=== PATIENT | female | born 1980 | race Caucasian/White ===

== ENCOUNTER 2017-07-09 17:57 | Emergency (ER) | payer OTHER ==
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
[2017-07-09] MEDS ORDERED: DIPH,PERTUSS(ACELL),TET VAC/PF 0.5 ML DISP.SYRIN IM ONE (18:19)
[2017-07-09 19:49] VITALS: BP 165/102
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
== END 2017-07-09 19:30 | disposition home or self-care (01) ==
LOC: ED 17:57
DX: S80.812A Abrasion, left lower leg, initial encounter (principal); S80.811A Abrasion, right lower leg, initial encounter; W45.8XXA Other foreign body or object entering through skin, initial encounter; Y93.9 Activity, unspecified; Y99.9 Unspecified external cause status
CPT/HCPCS: 90471; 90715; 99283

== ENCOUNTER 2018-06-02 15:19 | Emergency (ER) | payer OTHER ==
[2018-06-02] MEDS ORDERED: ASPIRIN 81 MG CHEW TAB PO ONE (15:37)
[2018-06-02 15:42] VITALS: BP 184/111
[2018-06-02] MEDS ORDERED: MORPHINE SULFATE 4 MG/ML PREFILLED SYR IVP ONE (15:44)
[2018-06-02 16:05] LABS: eGFR (Non-African) > 60
--- NOTE | 2018-06-02 16:14 | ED Physician Documentation ---
Sore Throat/Dental Pain - HPI Stated Complaint: CP Chief Complaint: Dental Pain Onset: days ago (2) Context: Fractured Tooth Associated Symptoms: chills, moderate Worsened By: heat, cold - ROS CONST: no problems CVS/RESP: chest pain GI/: nausea MS/SKIN/LYMPH: denies: leg swelling NEURO/PSYCH: headache - PAST HX Past History: gum disease Other History: other (hypertension) Allergies/Adverse Reactions: Allergies Allergy/AdvReac Type Severity Reaction Status Date / Time ropinirole HCl [From Requip] Allergy Verified 06/02/18 15:35 sumatriptan [From Imitrex] Allergy Verified 06/02/18 15:41 Home Medications: Ambulatory Orders Medication Instructions Recorded Clindamycin HCl 300 mg PO Q8 10 Days capsule 06/02/18 HYDROcodone /APAP 5/325 [[place] 1 tab PO PRN PRN 06/02/18 5/325] Levothyroxine Sodium [Synthroid] 1 tab PO DAILY 06/02/18 Methocarbamol 1 tab PO PRN PRN 06/02/18 Pramipexole Di-HCl [Pramipexole 1 tab PO DAILY 06/02/18 Dihydrochloride] Tramadol HCl [Ultram] 50 mg PO BID #20 tablet 06/02/18 - SOCIAL HX Smoking History: non-smoker Alcohol Use: none Drug Use: none - FAMILY HX Family History: No - VITAL SIGNS Vital Signs: Vital Signs Temp Pulse Resp BP Pulse Ox 97.6 F 87 24 184/111 100 06/02/18 15:33 06/02/18 15:37 06/02/18 15:33 06/02/18 15:33 06/02/18 15:37 - REVIEWED ASSESSMENTS Nursing Assessment Reviewed: Yes Vitals Reviewed: Yes Progress - Results/Orders Results/Orders: Troponin <0.03, CBC, CMP within normal limits. PA AND LATERAL CHEST HISTORY: Chest pain COMPARISON: None PA and Lateral Chest dated June 02, 2018 demonstrates a normal cardiomediastinal silhouette. Pulmonary vascularity is normal. Lungs are clear. IMPRESSION: NO ACTIVE DISEASE. Electronically signed on Jun 02, 2018 4:23:46 PM CDT by: Teresa Mccord - Progress Progress: 1700 patient still having pain after given Morphine 4mg IV. Will give [place] 5/325mg PO for longer lasting results. 1740 Blood pressure rising. Give Clonidine x 1. - EKG/XRAY/CT EKG: NSR ED Results Lab/Radiology - Lab Results Lab Results: Lab Results 06/02/18 06/02/18 15:37 15:37 Sodium 135 mmol/L L mmol/L (136-145) Potassium 4.0 mmol/L mmol/L (3.5-5.1) Chloride 106 mmol/L mmol/L (98-107) Carbon Dioxide 29 mmol/L mmol/L (22-30) BUN 11 mg/dL mg/dL (7-17) Creatinine 0.80 mg/dL mg/dL (0.52-1.04) Estimated Creat Clear 350 Est GFR ( Amer) > 60 (60 - ) Est GFR (Non-Af Amer) > 60 (60 - ) Glucose 91 mg/dL mg/dL (74-106) Calcium 8.8 mg/dL mg/dL (8.4-10.2) Total Bilirubin 0.4 mg/dL mg/dL (0.2-1.3) AST 15 U/L U/L (15-46) ALT 22 U/L U/L (13-69) Alkaline Phosphatase 91 U/L U/L (38-126) Creatine Kinase Pending Troponin I < 0.03 ng/mL L ng/mL (0.03-0.06) Total Protein 7.8 g/dL g/dL (6.3-8.2) Albumin 4.0 g/dL g/dL (3.5-5.0) - Orders Orders: ED Orders Category Date Time Status Continuous EKG monitoring Q30M Care 06/02/18 15:37 Active Continuous Pulse Oximetry Q30M Care 06/02/18 15:[address] IV Lock 1T Care 06/02/18 15:37 Active CHEST 2VIEW [RAD] Routine Exams 06/02/18 Ordered CBC REF Routine Lab 06/02/18 Received CMP Routine Lab 06/02/18 15:37 Results CREATINE KINASE Routine Lab 06/02/18 15:37 Results TROPONIN I (cTnI) Stat Lab 06/02/18 15:37 Completed Aspirin Med 06/02/18 15:37 Discontinued 324 mg PO NOW ONE Morphine Sulfate [DepoDUR] Med 06/02/18 15:44 Discontinued 4 mg IVP NOW ONE Oxygen Daily Oxygen 06/02/18 15:45 Ordered EKG WITH COMPARISON Stat Ther 06/02/18 15:37 Ordered Dental Pain Physical Exam - EXAM General Appearance: no acute distress Head/Neck: mandibular swelling (L), pain on palpation (L). No: cervical lymphadenopathy Eyes: PERRL Mouth/Throat: dental tenderness Ear/Nose: nml inspection Respiratory: breath sounds nml CVS: reg. rate & rhythm Abdomen: soft, normal bowel sounds, non-tender, tenderness Extremities: non-tender Skin: warm/dry, normal color Neuro/Psych: none (left lower molar) Discharge Clincal Impression: Infected dental caries, Essential (primary) hypertension Prescriptions: Clindamycin HCl 300 mg PO Q8 10 Days capsule Tramadol HCl [Ultram] 50 mg PO BID #20 tablet Referrals: Uma Perez MD [Primary Care Provider] - 2 Days Additional Instructions: Follow up with PCP and discuss blood pressure. You need to be taking a blood pressure medication. Disposition: 01 HOME, SELF-CARE Decision to Admit: NO Date of Decison to Admit: 06/02/18 Decision Time: 17:44
--- NOTE | 2018-06-02 16:37 | Diagnostic Imaging Report ---
SKINNY JOHNSON [facility] [address] [facility] [address] [place] [address]. [id number] Report Submission Date: Jun 02, 2018 4:23:46 PM CDT Patient Study Name: EDISON QUIÑONES Date: Jun 02, 2018 3:55:03 PM CDT Modality Type: DX Gender: F Description: CHEST : 82 Institution: [facility] Physician: SKINNY JOHNSON PA AND LATERAL CHEST HISTORY: Chest pain COMPARISON: None PA and Lateral Chest dated June 02, 2018 demonstrates a normal cardiomediastinal silhouette. Pulmonary vascularity is normal. Lungs are clear. IMPRESSION: NO ACTIVE DISEASE. Electronically signed on Jun 02, 2018 4:23:46 PM CDT by: Teresa SOMMERS
[2018-06-02] MEDS ORDERED: HYDROcodone /APAP 5/325 1 EACH TABLET PO ONE (16:40)
[2018-06-02] MEDS ORDERED: cefTRIAXone SODIUM 1 GM in 0.9 % SODIUM CHLORIDE 50 ML IV ONE (16:42)
[2018-06-02] MEDS ORDERED: cefTRIAXone SODIUM 1 GM VIAL ONE (16:45)
[2018-06-02] MEDS ORDERED: 0.9 % SODIUM CHLORIDE 100 ML IV ONE (16:46)
[2018-06-02 17:21] LABS: BASO % 0.4 % (0.0-1.5); LYMPH ABS # 1.64 thou/uL (0.60-4.00); MCH. 23.3 pg (28.0-34.0); MCV 73.1 fL (80.0-100.0); MONOCYTE % 6.8 % (0.0-11.0); MONOCYTE ABS # 0.61 thou/uL (0.00-0.90); PLATELET COUNT 270 thou/uL (130-400)
[2018-06-02] MEDS ORDERED: CloNIDine HCL 0.1 MG TABLET PO ONE (17:41)
== END 2018-06-02 18:20 | disposition home or self-care (01) ==
LOC: ED 15:19
DX: K04.7 Periapical abscess without sinus (principal); I10 Essential (primary) hypertension; R07.9 Chest pain, unspecified
CPT/HCPCS: 71046; 80053; 82550; 84484; 85025; A9270; J0696; J2270; 93005; 96365; 96375; 99284; S1016

== ENCOUNTER 2018-12-06 12:57 | Emergency (ER) | payer OTHER ==
--- NOTE | 2018-12-06 12:59 | ED Physician Documentation ---
General Adult - HISTORIAN Historian: patient - HPI Stated Complaint: nasuesa, diarrhea, cough, body aches Chief Complaint: General Adult Onset: days ago (9) Timing: still present Severity: moderate Further Comments: yes (She reports 9 days ago starting with body aches and she felt a temp. She has had nasuea and diarrhea, cough that is productive. She is feeling fatigue and chills. She is taking OTC meds with no relief. She has no sick contacts) - ROS CONST: fever, recent illness EYES/ENT: nasal drainage, nasal congestion CVS/RESP: cough. denies: chest pain, shortness of breath GI/: nausea, diarrhea. denies: problems urinating, vomiting MS/SKIN/LYMPH: denies: rash NEURO/PSYCH: headache - PAST HX Past History: hypertension Allergies/Adverse Reactions: Allergies Allergy/AdvReac Type Severity Reaction Status Date / Time ropinirole HCl [From Requip] Allergy Verified 06/02/18 15:35 sumatriptan [From Imitrex] Allergy Verified 06/02/18 15:41 Home Medications: Ambulatory Orders Medication Instructions Recorded Clindamycin HCl 300 mg PO Q8 10 Days capsule 06/02/18 HYDROcodone /APAP 5/325 [[place] 1 tab PO PRN PRN 06/02/18 5/325] Levothyroxine Sodium [Synthroid] 1 tab PO DAILY 06/02/18 Methocarbamol 1 tab PO PRN PRN 06/02/18 Pramipexole Di-HCl [Pramipexole 1 tab PO DAILY 06/02/18 Dihydrochloride] Tramadol HCl [Ultram] 50 mg PO BID #20 tablet 06/02/18 - SOCIAL HX Smoking History: non-smoker Alcohol Use: none Drug Use: none - FAMILY HX Family History: No - VITAL SIGNS Vital Signs: Vital Signs Temp Pulse Resp BP Pulse Ox 184/111 06/02/18 18:20 - REVIEWED ASSESSMENTS Nursing Assessment Reviewed: Yes Vitals Reviewed: Yes Progress - Progress Progress: 1400: decrease wheezing and improved inspiration post neb - she states this is improved DG General Adult Physical Exam - PHYSICAL EXAM GENERAL APPEARANCE: no distress EENT: eye inspection normal, pharynx normal, no signs of dehydration, SARTHAK. No: pharyngeal erythema NECK: normal inspection RESPIRATORY: no resp distress, chest non-tender, wheezes (exp wheezing on left upper lobe ) CVS: reg rate & rhythm, heart sounds normal ABDOMEN: soft, normal bowel sounds SKIN: warm/dry, normal color EXTREMITIES: non-tender, normal range of motion, no evidence of injury, no edema NEURO: oriented X3 Discharge Clincal Impression: Bronchitis Referrals: Uma Perez MD [Primary Care Provider] - 2 Days Comments: 1. Azithromycin - zpack - take as directed 2. Medrol dose pack - take as directed 3. ProAir 2 puffs by mouth every 4 hours as needed for cough 4. zofran 4 mg take 1 by mouth every 8 hours as needed for nausea 5. Increase fluids 6. See PCP In 2 days if no improvement 7. Return to ER for increasing concerns Condition: Stable Disposition: 01 HOME, SELF-CARE Decision to Admit: NO Date of Decison to Admit: 12/06/18 Decision Time: 14:05
[2018-12-06] MEDS ORDERED: IPRATROPIUM/ALBUTEROL SULFATE 3 ML AMPUL.NEB NEB ONE (13:42)
[2018-12-06] MEDS ORDERED: ONDANSETRON HCL 4 MG TAB.RAPDIS PO ONE (14:02)
[2018-12-06 14:08] VITALS: BP 182/111
--- NOTE | 2018-12-06 15:21 | Diagnostic Imaging Report ---
RICKIE BRIGGS [facility] [address] [facility] [address] [place], [place]. [address] Report Submission Date: Dec 06, 2018 1:50:30 PM CDT Patient Study Name: EDISON RAMIREZ Date: Dec 06, 2018 1:27:24 PM CDT Modality Type: DX Gender: F Description: CHEST 2VIEW : 82 Institution: [facility] Physician: RICKIE BRIGGS Chest PA and lateral views Clinical history: Cough and wheezing. Normal heart shadow and mediastinum. Clear lungs without acute infiltrate or pleural effusion. No pneumothorax. Mild thoracic spine spondylosis. Impression: No active pulmonary pathology Electronically signed on Dec 06, 2018 1:50:30 PM CDT by: Himanshu SOMMERS
== END 2018-12-06 14:59 | disposition home or self-care (01) ==
LOC: ED 12:57
DX: J40 Bronchitis, not specified as acute or chronic (principal)
CPT/HCPCS: 71046; 87400; 94640; 99283; A9270

== ENCOUNTER 2019-08-19 18:37 | Emergency (ER) | payer OTHER ==
--- NOTE | 2019-08-19 19:02 | ED Physician Documentation ---
General Adult - HISTORIAN Historian: patient - HPI Stated Complaint: facial swelling Chief Complaint: General Adult Additional Information: Patient presents to ED with feeling of facial swelling after having steroid injection today. Patient reports the steroid injection was for her back. Upon presentation blood pressure was elevated, face was red and patient was anxious. Onset: hours (1) Timing: still present Severity: mild - ROS CONST: denies: fever EYES/ENT: denies: nasal congestion CVS/RESP: shortness of breath. denies: chest pain GI/: denies: vomiting, nausea MS/SKIN/LYMPH: none NEURO/PSYCH: denies: headache - PAST HX Past History: hypertension Other History: none Surgeries/Procedures: none Allergies/Adverse Reactions: Allergies Allergy/AdvReac Type Severity Reaction Status Date / Time ropinirole HCl [From Requip] Allergy Verified 08/19/19 19:07 sumatriptan [From Imitrex] Allergy Verified 08/19/19 19:07 Home Medications: Ambulatory Orders Medication Instructions Recorded HYDROcodone /APAP 5/325 [[place] 1 tab PO PRN PRN 06/02/18 5/325] Levothyroxine Sodium [Synthroid] 1 tab PO DAILY 06/02/18 Methocarbamol 1 tab PO PRN PRN 06/02/18 Pramipexole Di-HCl [Pramipexole 1 tab PO DAILY 06/02/18 Dihydrochloride] Metoprolol Succinate [Toprol Xl] 1 tab PO DAILY 01/06/19 Topiramate [Topamax] 1.5 tab PO DAILY 01/06/19 - SOCIAL HX Smoking History: non-smoker Alcohol Use: none Drug Use: none - FAMILY HX Family History: No - VITAL SIGNS Vital Signs: Vital Signs Temp Pulse Resp BP Pulse Ox 157/86 01/06/19 20:16 - REVIEWED ASSESSMENTS Nursing Assessment Reviewed: Yes Vitals Reviewed: Yes Progress - Progress Progress: 1934 Patient now wants pain medication for her back. 2038 Re-examined patient, lungs are clear, no rash, no facial redness. Patient's significant other asking for more pain mediation for patient. - EKG/XRAY/CT Comments: 1845 NSR 98 bpm General Adult Physical Exam - PHYSICAL EXAM GENERAL APPEARANCE: no distress EENT: SARTHAK NECK: normal inspection RESPIRATORY: no resp distress CVS: reg rate & rhythm ABDOMEN: soft, normal bowel sounds, other (obese) SKIN: warm/dry, normal color EXTREMITIES: non-tender, no edema NEURO: oriented X3, mood/affect nml Discharge Clincal Impression: Essential (primary) hypertension Medication reaction Qualifiers: Encounter type: initial encounter Qualified Code(s): T50.905A - Adverse effect of unspecified drugs, medicaments and biological substances, initial encounter Referrals: Uma Perez MD [Primary Care Provider] - 2 Days Additional Instructions: 1. Benedryl 50mg every 4 hours as needed for facial swelling. 2. Resume home medications 3. Keep blood pressure log, measure in the morning and evening. Take this log with you to your next doctors appointment. 4. Follow up with PCP within 1 week. Discuss blood pressure log 5. Return to ER for new or worsening symptoms Condition: Stable Disposition: 01 HOME, SELF-CARE Decision to Admit: NO Date of Decison to Admit: 08/19/19 Decision Time: 19:56
[2019-08-19] MEDS: diphenhydrAMINE HCL 50 MG/ML VIAL IVP ONE (19:15)
[2019-08-19] MEDS: FAMOTIDINE 20 MG/2 ML VIAL IV ONE (19:18)
[2019-08-19] MEDS: traMADol HCL 50 MG TABLET PO ONE (19:50)
[2019-08-19] MEDS: hydrALAZINE HCL 20 MG/1 ML IVP ONE (19:55)
[2019-08-19 20:47] VITALS: BP 169/84
[2019-08-20 06:41] LABS: BASOPHILS % 0.2 % (0.0-1.5); NEUTROPHILS # 9.7 # k/uL (1.4-7.7); eGFR (Non-African) > 60
== END 2019-08-19 20:38 | disposition home or self-care (01) ==
LOC: ED 18:37
DX: I10 Essential (primary) hypertension (principal); T50.905A Adverse effect of unspecified drugs, medicaments and biological substances, initial encounter
CPT/HCPCS: 80053; 85025; 93005; 96374; 96375; 99282; 99284; J1200; S1016

== ENCOUNTER 2019-09-20 16:43 | Emergency (ER) | payer OTHER ==
[2019-09-20 17:48] LABS: eGFR (Non-African) > 60
--- NOTE | 2019-09-20 18:15 | ED Physician Documentation ---
Chest Pain - HISTORIAN Historian: patient - HPI Stated Complaint: chest pain Chief Complaint: Chest Pain Onset: days ago Timing: sudden onset (1100) Last known Well Date: 09/20/19 Last Known Well Time: 11:00 Context: rest Severity: moderate Quality: tightness Chest Pain Radiation: jaw Further Comments: yes (39 year old female patient presents with left sided chest pain that started at approx 1100 today, sudden onset, describes at "sharp", vomited x 1, reports pain goes straight through to back and down left arm. Denies any CP on arrival to ER. Reports she was seen in ER at [facility] on Friday with similar symptoms. "elevated CHF number, not high enough to start lasix". Patient c/o increased swelling in legs and ankles. Chronic fatigue and SOB>) - ROS CONST: recent illness (ER last week) MS/LYMPH: ankle swelling. denies: neck pain, calf pain, back pain GI/: vomiting (x1) EYES/ENT: none SKIN/ENDO: none - PAST HX TX risk factors: hypertension, diabetes Type 2, hyperlipidemia DVT/PE Risk Factors: leg swelling GI disease: GERD Allergies/Adverse Reactions: Allergies Allergy/AdvReac Type Severity Reaction Status Date / Time ropinirole HCl [From Requip] Allergy Verified 09/20/19 17:29 sumatriptan [From Imitrex] Allergy Verified 09/20/19 17:29 Home Medications: Ambulatory Orders Medication Instructions Recorded HYDROcodone /APAP 5/325 [[place] 1 tab PO Q4H PRN 06/02/18 5/325] Levothyroxine Sodium [Synthroid] 137 mcg PO DAILY 06/02/18 Methocarbamol 1 tab PO TID 06/02/18 Pramipexole Di-HCl [Pramipexole 1 mg PO HS 06/02/18 Dihydrochloride] Metoprolol Succinate [Toprol Xl] 12.5 mg PO BID 01/06/19 Topiramate [Topamax] 1.5 tab PO DAILY 01/06/19 Ranitidine HCl [Heartburn Relief] 150 mg PO BID 09/20/19 - SOCIAL HX Smoking History: non-smoker - FAMILY HX Family HX: denies: none - VITAL SIGNS Vital Signs: Vital Signs Temp Pulse Resp BP Pulse Ox 97.9 F 85 22 181/91 99 09/20/19 16:45 09/20/19 16:45 09/20/19 16:45 09/20/19 16:45 09/20/19 16:45 - REVIEWED ASSESSMENTS Nursing Assessment Reviewed: Yes Vitals Reviewed: Yes Progress - Progress Progress: Reviewed lab findings. No tachycardia; RA Sat 97-98% - PE unlikely. Patient instructed to follow up with Dr Perez this week. Return to ER if symptoms become worse - CP with SOB, palpitations, N/V. ED Results Lab/Radiology - Lab Results Lab Results: Lab Results 09/20/19 09/20/19 09/20/19 17:15 17:15 17:15 WBC 10.90 K/ul K/ul (4.00-12.00) RBC 5.30 M/ul H M/ul (3.90-5.20) Hgb 11.2 g/dL L g/dL (11.5-16.0) Hct 36.5 % % (34.5-46.5) MCV 69.0 fl L fl (80.0-100.0) MCH 21.1 pg L pg (28.0-34.0) MCHC 30.6 g/dL g/dL (30.0-36.0) RDW 16.5 % H % (11.3-14.3) Plt Count 304 K/mm3 K/mm3 (130-400) Neut % (Auto) Pending Lymph % (Auto) Pending Kerr % (Auto) Pending Eos % (Auto) Pending Baso % (Auto) Pending Neut # (Auto) Pending Lymph # (Auto) Pending Kerr # (Auto) Pending Eos # (Auto) Pending Baso # (Auto) Pending Sodium 138 mmol/L mmol/L (137-145) Potassium 4.0 mmol/L mmol/L (3.5-5.1) Chloride 100 mmol/L mmol/L (98-107) Carbon Dioxide 29 mmol/L mmol/L (22-30) Anion Gap 13.0 BUN 11 mg/dL mg/dL (7-17) Creatinine 0.74 mg/dL mg/dL (0.52-1.04) Estimated Creat Clear 401 Est GFR ( Amer) > 60 (60 - ) Est GFR (Non-Af Amer) > 60 (60 - ) Glucose 91 mg/dL mg/dL (74-106) Calcium 9.1 mg/dL mg/dL (8.4-10.2) Total Bilirubin 0.5 mg/dL mg/dL (0.2-1.3) AST 22 U/L U/L (15-46) ALT 17 U/L U/L (4-35) Alkaline Phosphatase 82 U/L U/L (38-126) Troponin I < 0.012 ng/mL L ng/mL (0.012-0.034) NT-Pro-B Natriuret Pep 139.1 pg/mL H pg/mL (15.0-125.5) Total Protein 7.6 g/dL g/dL (6.3-8.2) Albumin 4.2 g/dL g/dL (3.5-5.0) - Orders Orders: ED Orders Category Date Time Status Place IV Lock 1T Care 09/20/19 16:58 Active CBC/PLATELET/DIFF Stat Lab 09/20/19 17:15 Results CMP Stat Lab 09/20/19 17:15 Completed INFLUENZA A&B Stat Lab 09/20/19 16:58 Ordered NT BNP Stat Lab 09/20/19 17:15 Completed TROPONIN I Stat Lab 09/20/19 17:15 Completed EKG WITH COMPARISON Stat Ther 09/20/19 16:58 Completed Chest Pain Physical Exam - EXAM General Appearance: mild distress EENT: eye inspection normal, SARTHAK Respiratory: no resp. distress, chest non-tender, nml breath sounds CVS: reg. rate & rhythm, no murmur, no gallop, no friction rub, pulses full, pulses equal Abdomen: soft, no organomegaly, normal bowel sounds, no abdominal bruit, no distension, other (morbid obesity) Skin: normal color, warm/dry, NR, INT, DR Extremities: non-tender, normal range of motion, no evidence of injury, no edema, J, RECREATION MANAGER Neuro: oriented X3, CN's nml as tested, motor nml, sensation nml, mood/affect nml Discharge Clincal Impression: Non-cardiac chest pain, Morbid obesity Referrals: Uma Perez MD [Primary Care Provider] - 2 Days Condition: Stable Disposition: HOME, SELF-CARE Decision to Admit: NO Decision Time: 18:20
[2019-09-20 18:21] VITALS: BP 153/76
[2019-09-21 06:20] LABS: BASOPHILS % 0.6 % (0.0-1.5); NEUTROPHILS # 7.6 # k/uL (1.4-7.7)
== END 2019-09-20 18:19 | disposition home or self-care (01) ==
LOC: ED 16:43
DX: E66.01 Morbid (severe) obesity due to excess calories (principal); R07.89 Other chest pain
CPT/HCPCS: 80053; 83880; 84484; 85025; 87400; 93005; 99282; 99283; S1016